=== PATIENT | male | born 1995 | race Caucasian/White ===

== ENCOUNTER 2021-03-01 14:42 | Emergency (ER) | payer OTHER ==
[2021-03-01 16:05] LABS: HEMOGLOBIN 17.8 gm/dl (14.0-17.5); RED BLOOD COUNT 5.96 M/UL (4.20-5.50); WHITE BLOOD COUNT 4.4 K/UL (4.5-11.0)
[2021-03-01 16:42] LABS: BUN/CREATININE RATIO 11 (0-10)
[2021-03-01] MEDS ORDERED: ZITHROMAX250 MG PO (18:23)
[2021-03-01] MEDS ORDERED: PROVENTIL HFA6.7 GM INH (18:25)
== END 2021-03-01 19:51 | disposition home or self-care (01) ==
LOC: ER1 14:42
PROVIDERS: Physician Assistant
DX: U07.1 COVID-19 (principal); Z79.899 Other long term (current) drug therapy
CPT/HCPCS: 0240U; 36600; 71045; 80053; 82803; 83605; 85025; 87040; 99283; J2405